=== PATIENT | female | born 1955 | race Caucasian/White ===

== ENCOUNTER → 2023-09-15 08:16 | Outpatient (REF) | payer MEDICARE, OTHER, SELFPAY ==
[2023-09-15 09:16] LABS: % Basophils 0.8 % (0-2); % Eosinophils 2.6 % (0-6); % Immature Granulocytes 0.3 % (0-0.5); % Lymphocytes 34.6 % (20.5-51.1); % Monocytes 10.1 % (1.7-9.3); % Neutrophils 51.6 % (42.2-75.2); Absolute Basophils 0.1 10^3/uL (0-0.2); Absolute Eosinophils 0.2 10^3/uL (0-0.7); Absolute Lymphocytes 2.2 10^3/uL (1.2-3.4); Absolute Monocytes 0.6 10^3/uL (0.1-0.6); Absolute Neutrophils 3.2 10^3/uL (1.4-6.5); Hematocrit 42.7 % (37.0-47.0); Hemoglobin 14.1 g/dL (12.0-16.0); Mean Corpuscular Hgb 30.3 pg (27.0-31.0); Mean Corpuscular Volume 91.6 fL (81.0-99.0); Mean Platelet Volume 10.3 fL (7.4-10.4); Nucleated Red Blood Cells % 0 %; Platelet Count 246 10^3/uL (130-400); Red Blood Cell Count 4.66 10^6/uL (4.20-5.40); Red Cell Dist. Width 12.3 % (11.5-14.5); White Blood Cell Count 6.3 10^3/uL (4.8-10.8)
[2023-09-15 09:51] LABS: ALT (SGPT) 19 U/L (0-35); AST (SGOT) 24 U/L (14-36); Albumin 4.4 g/dl (3.5-5.0); Alkaline Phosphatase 65 U/L (38-126); Blood Urea Nitrogen 16 mg/dl (7-17); Calcium 8.9 mg/dl (8.4-10.2); Carbon Dioxide 25 mmol/L (22-30); Chloride 109 mmol/L (98-107); Glucose 86 mg/dl (70-99); Potassium 4.1 mmol/L (3.5-5.1); Sodium 141 mmol/L (135-145); Total Bilirubin 0.4 mg/dl (0.2-1.3); Total Cholesterol 172 mg/dl (50-199); Total Protein 6.9 g/dl (6.3-8.2); Triglyceride 108 mg/dl (10-149); Very Low Density Lipoprotein 21 mg/dl (0-30); eGFR > 60.00
[2023-09-15 10:00] LABS: HDL Cholesterol 113 mg/dl; LDL Cholesterol, Calculated 38 mg/dl
[2023-09-15 10:01] LABS: Free T4 1.03 ng/dl (0.78-2.19)
== END ==
LOC: REG 08:16
PROVIDERS: ATTENDING PHYSICIAN Internal Medicine Geriatric Medicine
DX: I10 Essential (primary) hypertension (principal); E78.2 Mixed hyperlipidemia; I31.9 Disease of pericardium, unspecified; I34.0 Nonrheumatic mitral (valve) insufficiency; G45.9 Transient cerebral ischemic attack, unspecified; G47.33 Obstructive sleep apnea (adult) (pediatric)
CPT/HCPCS: 36415; 80053; 80061; 84439; 85025

== ENCOUNTER 2023-10-13 21:34 | Emergency (ER) | payer MEDICARE, OTHER, SELFPAY ==
[2023-10-13 21:40] VITALS: BP 146/88
[2023-10-13 21:59] VITALS: BP 153/76
[2023-10-13 22:00] VITALS: BP 126/71
[2023-10-13 22:24] VITALS: BMI 21.4
[2023-10-13 22:31] LABS: % Basophils 0.6 % (0-2); % Immature Granulocytes 0.3 % (0-0.5); % Lymphocytes 44.8 % (20.5-51.1); % Monocytes 10.8 % (1.7-9.3); % Neutrophils 41.5 % (42.2-75.2); Absolute Eosinophils 0.1 10^3/uL (0-0.7); Absolute Lymphocytes 3.1 10^3/uL (1.2-3.4); Absolute Monocytes 0.7 10^3/uL (0.1-0.6); Absolute Neutrophils 2.9 10^3/uL (1.4-6.5); Mean Corpuscular Hgb 31.2 pg (27.0-31.0); Mean Corpuscular Volume 89.1 fL (81.0-99.0); Nucleated Red Blood Cells % 0 %; Platelet Count 238 10^3/uL (130-400); Red Blood Cell Count 4.49 10^6/uL (4.20-5.40); Red Cell Dist. Width 12.4 % (11.5-14.5); White Blood Cell Count 6.9 10^3/uL (4.8-10.8)
--- NOTE | 2023-10-13 22:31 | ED.GENMED ---
History of Present Illness
General
Chief Complaint: Chest Pain
Source: patient and spouse
Time Seen by Provider: 10/13/23 22:00
Travel History
Have you had any contact with someone who has COVID-19?: No
Do you have any symptoms of coronavirus? Fever > 100 degrees, chills, cough, shortness of breath, sore throat, loss of taste or smell, muscle aches, or headache?: Yes
Symptoms:: SOB
History of Present Illness
History of Present Illness:
67-year-old female with past medical history of hypertension, TIA, pericarditis presenting to the emergency department for evaluation of left-sided chest pain that started 2 days ago, worse yesterday and persisted today prompting her to come to the
ER for further evaluation after telling her later this evening. Patient describes the pain to be a constant sharp pain that radiates up into her left shoulder and into the axillary region and around into her back, worse when laying
reclined, worse with palpation, unchanged with deep inspiration. Patient states she did not want to come to the ER as she does not believe it is her heart noting she has had full cardiac workup last year which did not show any cardiac
abnormalities. Patient is otherwise denying any recent illnesses, fevers, chills, rigors, cough, pleurisy, hemoptysis, lower extremity pain or edema, exertional dyspnea, orthopnea, PND, abdominal pain, syncopal episodes or any other concerns
Past History
Past History
ED Past Medical History: Asthma, CVA, HTN, Seizures, Other (constipation) and Other (Dizziness, frequent headaches, pericarditis, urinary tract infections, kidney infections, ambulatory dysfunction, osteoporosis, asthma condition s/p pneumonia)
ED Past Surgical History: Brain (AVM surgery), Gynecological (Hysterectomy), Orthopedic (Patella fracture repair (05/06/14), left rotator cuff repair, bilateral MCL repairs) and Other (Repair of an AVM , left breast cyst removal)
Social History
Tobacco: Former smoker
Alcohol: None
Drug: None
Personal:
Living: with family
Employment: Employed
Family History
Family History: CAD
Review of Systems
Review of Systems
All Other Systems: ROS reviewed and negative except as documented in HPI and ROS
Phy Exam
Physical Exam
Physical Exam:
GENERAL: Alert , in no apparent distress
Head: NCAT
EYE: conjunctiva clear
NECK: Supple
ENT: o/p clr, mmm.
CARDIAC: Regular rate and rhythm
LUNGS: Clear breath sounds bilaterally, no acute respiratory distress, no wheezes/rales/rhonchi
Chest wall: Clearly reproducible tenderness over the left lateral portion of the sternum and just medial to the left breast
NEUROLOGICAL: Alert and oriented
SKIN: Warm and dry, skin intact.
MUSCULOSKELETAL: well perfused. No edema
PSYCH: Normal and appropriate interaction.
Scores
Heart Failure Risk
Heart Failure Risk Score: Not Applicable
Heart Score for Chest Pain Patients
STEMI patient?: No
History: Slightly or Non-Suspicious
ECG: Normal
Age: >/= 65 years
Risk Factors: 1 or 2 Risk Factors
Troponin: </= Normal Limit
Heart Score for Chest Pain Patients: 3
Heart Score Risk: 2.5% MACE over next 6 weeks
Withdrawal Assessment of Alcohol
Withdrawal Assessment Completed?: Not applicable
Course
Orders/Labs/Results
Orders:
Orders
10/13/23 21:38
Electrocardiogram (*1) Urgent
Reason for Study: Chest Pain
Cardiac Monitoring- Treatment ONCE
EKG- Treatment ONCE
IV Insert/Care/Rem.- Treatment PRN
O2 Therapy [RESP] Urgent
Titrate/Wean O2 to maintain O2 sat greater than (%): 90
Special Instructions: Maintain sats >/=90%
Pulse Ox/spot Check [RESP] Urgent
Quantity: 1
Special Instructions: ON ROOM AIR
10/13/23 22:23
Complete Blood Count/With Diff Urgent
Comprehensive Metabolic Panel Urgent
D-Dimer Urgent
Troponin I Urgent
10/13/23 22:31
Ketorolac [Toradol] 30 mg IV NOW STA
Abnormal Lab Results
10/13/23
22:23
MCH 31.2 H pg
(27.0-31.0)
Absolute Monos (auto) 0.7 H 10^3/uL
(0.1-0.6)
Neutrophils % 41.5 L %
(42.2-75.2)
Monocytes % 10.8 H %
(1.7-9.3)
Chloride 109 H mmol/L
(98-107)
10/13/23 22:23
10/13/23 22:23
Vital Signs
Initial and Last Documented VS:
Initial Vital Signs
Temp Pulse Resp BP Pulse Ox
97.5 F 69 22 146/88 99
10/13/23 21:40 10/13/23 21:40 10/13/23 21:40 10/13/23 21:40 10/13/23 21:40
Last Documented Vital Signs
Temp Pulse Resp BP Pulse Ox
97.5 F 69 18 137/87 97
10/13/23 21:40 10/13/23 23:20 10/13/23 23:20 10/13/23 23:20 10/13/23 23:20
MDM/Problems Addressed
Differential Diagnosis Includes:
Pleurisy, costochondritis, PE, atypical ACS presentation, dissection
MDM/Problems Addressed:
67-year-old female presenting emergency department for evaluation of left-sided chest discomfort has been ongoing for the last 48 hours, told about symptoms tonight and he brought her to the ER for further evaluation. Pain is clearly
reproducible on palpation making a muscular etiology more likely. Patient does have some risk factors for heart disease however including high blood pressure and has a brother with a cardiac stent. Will check labs including a troponin and D-dimer.
Reassessment following.
*Pulse Oximetry
Patient hypoxic: no
*EKG
Comparison EKG: no changes
Heart Rate: 71
Rate: normal
Rhythm: sinus and PVC's
Otoe: normal axis
Ischemia: no ischemia
*Supervisor Furnace Room Interpretation
Rate: normal
Rhythm: sinus
*Critical Care Note
Total Time (30-74mins, 75-104mins- exclusive of procedures): Not Applicable
Data Reviewed
Review of Other/Old Records Reveals: Labs, Records and Testing (Normal nuclear stress test done on September 09, 2022. Echocardiogram done on September 07, 2022 shows left ventricle ejection fraction measuring 60 to 65%. No significant valvular
abnormalities.)
Source: patient and records
Comment
Comment:
Following completion of the exam patient did note to me that last week she had a tooth pulled and was given an antibiotic. Endocarditis considered as a diagnosis however given lack of fevers or other infectious symptoms thought to be less likely
Patient Management
Escalation/DeEscalation of care consider admission/obs:
Patient's labs are all unremarkable. She has a negative D-dimer as well as troponin. Symptoms have been ongoing for greater than 48 hours so I have no suspicion for ACS presentation nor dissection or pulmonary embolism. Suspect muscular etiology
is most likely diagnosis. Patient can follow-up with primary care provider. Aware of return precautions
ED Attending Note
-
Portions of this chart may have been created with voice recognition software.� Occasional wrong word or��sound alike� substitutions may have occurred due to the inherent limitations of voice recognition software.
Discharge Plan
Departure
Patient Disposition: Home (Routine Discharge)
Date of Disposition: 10/13/23
Time of Disposition: 23:16
Patient with high blood pressure during this ER visit?: Yes
Discharge Problem:
Chest pain
Instructions: Chest Pain CBC Follow Up
Prescriptions:
No Action
amitriptyline 25 MG tablet
25 mg PO HS
potassium chloride [Klor-Con M20] 20 MEQ tablet,ER particles/crystals
20 meq PO BID Qty: 0
cholecalciferol (vitamin D3) 2,000 UNITS tablet
4,000 units PO DAILY Qty: 0
levothyroxine 50 MCG tablet
50 mcg PO DAILY
amlodipine 5 MG tablet
5 mg PO HS
meloxicam 7.5 MG tablet
7.5 mg PO DAILY
Hold Instructions: Do not take while taking both aspirin and Plavix
lorazepam 1 MG tablet
0.5 mg PO HS
Patient Comments:
10/18/2022: last filled 10/14/22, 30 tabs for 30 days from [facility][id number]
rosuvastatin 5 MG tablet
5 mg PO DAILY
topiramate 200 mg tablet
200 mg PO BID
lacosamide 100 mg tablet
150 mg PO BID
Calcium 500
600 mg PO DAILY
Mag-200
400 mg PO DAILY
Multi For Her
1 tab PO DAILY
zinc 25 mg Tablet
25 mg PO DAILY
vitamin B complex [B Complex] Capsule
1 cap PO DAILY
levalbuterol tartrate [Xopenex HFA] 45 mcg/actuation Hfa Aerosol Inhaler
1 puff INHALATION Q6H PRN (Reason: SOB)
budesonide-formoterol [Symbicort] 80-4.5 mcg/actuation Hfa Aerosol Inhaler
1 puff INHALATION DAILY PRN (Reason: asthma)
mupirocin 2 % Ointment
1 applic TOPICAL PRE OP
alendronate [Fosamax] 70 mg/75 mL Solution
70 mg PO QWEEK
mupirocin 2 % ointment
1 applic topical BID Qty: 1 0RF
lorazepam 0.5 mg Tablet
0.5 mg PO DAILY PRN (Reason: seizure activity)
amoxicillin-pot clavulanate [Augmentin] 875-125 mg Tablet
1 tab PO Q12H
Rx Instructions:
05/23-06/01
Interventions
Interventions:
*Risk Screen - Suicide Last Done: 10/13/23 21:40
*General Assessment Last Done: 10/13/23 21:40
*Neglect/Abuse Screening Last Done: 10/13/23 21:40
ED- Fall Risk Assessment Last Done: 10/13/23 22:33
*ED COVID-19 Vaccine History Last Done: 10/13/23 23:25
*Nursing Disposition Last Done: 10/13/23 23:20
ED- Cardiac Assessment Last Done: 10/13/23 22:33
Discharge Date and Time
Discharge Date/Time: 10/14/23 00:06
Print Language: LUX[place]BOURG[place]
[2023-10-13 22:42] LABS: ALT (SGPT) 21 U/L (0-35); AST (SGOT) 26 U/L (14-36); Albumin 4.2 g/dl (3.5-5.0); Alkaline Phosphatase 73 U/L (38-126); Blood Urea Nitrogen 15 mg/dl (7-17); Calcium 9.1 mg/dl (8.4-10.2); Carbon Dioxide 25 mmol/L (22-30); Chloride 109 mmol/L (98-107); D-Dimer 0.36 ug/mlFEU (0.00-0.50); Estimated Creatinine Clearance 64 ml/min; Glucose 92 mg/dl (70-99); Potassium 3.9 mmol/L (3.5-5.1); Sodium 137 mmol/L (135-145); Total Bilirubin 0.2 mg/dl (0.2-1.3); Total Protein 6.8 g/dl (6.3-8.2); eGFR > 60.00
[2023-10-13] MEDS: TORADOL 30 MG IV (22:42)
[2023-10-13 22:54] LABS: Troponin I < 0.012 ng/ml
[2023-10-13 23:11] VITALS: BP 137/87
[2023-10-13 23:20] VITALS: BP 137/87
== END 2023-10-14 00:06 | disposition home or self-care (01) ==
LOC: EMR 21:34
PROVIDERS: Emergency Medicine; Physician Assistant Medical; EMERGENCY PHYSICIAN Emergency Medicine; FAMILY PHYSICIAN Internal Medicine Geriatric Medicine
DX: R07.9 Chest pain, unspecified (principal); R09.1 Pleurisy; R06.02 Shortness of breath; I10 Essential (primary) hypertension; Z87.891 Personal history of nicotine dependence; Z86.73 Personal history of transient ischemic attack (TIA), and cerebral infarction without residual deficits
CPT/HCPCS: 99284; 96374; 80053; 84484; 85025; 85379; 93005

== ENCOUNTER → 2023-12-12 16:02 | Outpatient (REF) | payer MEDICARE, OTHER, SELFPAY | LOC: HWRAD 16:02 | PROVIDERS: ATTENDING PHYSICIAN Nurse Practitioner Family; FAMILY PHYSICIAN Internal Medicine Geriatric Medicine | DX: R10.31 Right lower quadrant pain (principal) | CPT/HCPCS: 74176 ==

== ENCOUNTER → 2023-12-13 07:40 | Outpatient (REF) | payer MEDICARE, OTHER, SELFPAY ==
[2023-12-13 08:46] LABS: Urine Albumin Negative (Neg - Trace); Urine Bilirubin Negative (Negative); Urine Character Clear (Clear); Urine Color Yellow; Urine Glucose Negative (Negative); Urine Ketone Negative (Negative); Urine Leukocyte 1+ (Negative); Urine Nitrite Negative (Negative); Urine Occult Blood Negative (Negative); Urine Urobilinogen Negative (Neg - 1+)
[2023-12-13 08:54] LABS: % Eosinophils 3.1 % (0-6); % Immature Granulocytes 0.2 % (0-0.5); % Monocytes 11.1 % (1.7-9.3); % Neutrophils 41.6 % (42.2-75.2); Absolute Basophils 0.1 10^3/uL (0-0.2); Absolute Eosinophils 0.2 10^3/uL (0-0.7); Absolute Lymphocytes 2.1 10^3/uL (1.2-3.4); Absolute Monocytes 0.5 10^3/uL (0.1-0.6); Hematocrit 39.6 % (37.0-47.0); Hemoglobin 13.3 g/dL (12.0-16.0); Mean Corp Hgb Conc. 33.6 g/dL (33.0-37.0); Mean Corpuscular Hgb 30.4 pg (27.0-31.0); Mean Corpuscular Volume 90.6 fL (81.0-99.0); Mean Platelet Volume 10.9 fL (7.4-10.4); Nucleated Red Blood Cells % 0 %; Platelet Count 218 10^3/uL (130-400); Red Blood Cell Count 4.37 10^6/uL (4.20-5.40); Red Cell Dist. Width 12.2 % (11.5-14.5); White Blood Cell Count 4.8 10^3/uL (4.8-10.8)
[2023-12-13 09:05] LABS: Urine Hyaline Cast 0-2 /LPF (0-2); Urine Squamous Cell 21-25 /LPF (Few)
[2023-12-13 09:06] LABS: Urine Amorphous Seen
[2023-12-13 09:07] LABS: Urine Bacteria Moderate (Negative); Urine Red Blood Cell 0-2 /HPF (0-2)
[2023-12-13 09:16] LABS: ALT (SGPT) 23 U/L (0-35); AST (SGOT) 29 U/L (14-36); Albumin 4.1 g/dl (3.5-5.0); Alkaline Phosphatase 67 U/L (38-126); Blood Urea Nitrogen 15 mg/dl (7-17); Calcium 9.2 mg/dl (8.4-10.2); Carbon Dioxide 23 mmol/L (22-30); Chloride 111 mmol/L (98-107); Glucose 90 mg/dl (70-99); Sodium 141 mmol/L (135-145); Total Bilirubin 0.5 mg/dl (0.2-1.3); Total Protein 6.4 g/dl (6.3-8.2); eGFR > 60.00
== END ==
LOC: REG 07:40
PROVIDERS: ATTENDING PHYSICIAN Nurse Practitioner Family
DX: R10.31 Right lower quadrant pain (principal)
CPT/HCPCS: 36415; 80053; 81003; 81015; 85025; 87086

== ENCOUNTER → 2024-02-08 10:42 | Outpatient (REF) | payer MEDICARE, OTHER, SELFPAY ==
[2024-02-08 11:56] LABS: Hematocrit 40.8 % (37.0-47.0); Hemoglobin 13.9 g/dL (12.0-16.0); Mean Corp Hgb Conc. 34.1 g/dL (33.0-37.0); Mean Corpuscular Hgb 31.6 pg (27.0-31.0); Mean Corpuscular Volume 92.7 fL (81.0-99.0); Mean Platelet Volume 10.5 fL (7.4-10.4); Platelet Count 241 10^3/uL (130-400); Red Cell Dist. Width 12.4 % (11.5-14.5)
[2024-02-08 12:13] LABS: ALT (SGPT) 24 U/L (0-35); AST (SGOT) 24 U/L (14-36); Albumin 4.5 g/dl (3.5-5.0); Alkaline Phosphatase 73 U/L (38-126); Blood Urea Nitrogen 17 mg/dl (7-17); Calcium 9.8 mg/dl (8.4-10.2); Carbon Dioxide 24 mmol/L (22-30); Chloride 109 mmol/L (98-107); Glucose 82 mg/dl (70-99); Potassium 4.4 mmol/L (3.5-5.1); Sodium 139 mmol/L (135-145); Total Bilirubin 0.4 mg/dl (0.2-1.3); Total Protein 6.9 g/dl (6.3-8.2); eGFR > 60.00
[2024-02-08 12:30] LABS: Vitamin D, 25-OH*** 70.4 ng/mL (30-80)
[2024-02-08 12:40] LABS: TSH Reflex To Free T4 1.31 uIU/ml (0.47-4.68)
[2024-02-08 12:59] LABS: Vitamin B12 864 pg/ml (239-931)
[2024-02-08 14:37] LABS: % Basophils 0.6 % (0-2); % Eosinophils 0.6 % (0-6); % Immature Granulocytes 0.3 % (0-0.5); % Lymphocytes 33.7 % (20.5-51.1); % Monocytes 11.3 % (1.7-9.3); % Neutrophils 53.5 % (42.2-75.2); Absolute Lymphocytes 2.4 10^3/uL (1.2-3.4); Absolute Monocytes 0.8 10^3/uL (0.1-0.6); Absolute Neutrophils 3.7 10^3/uL (1.4-6.5); Nucleated Red Blood Cells % 0 %
== END ==
LOC: REG 10:42
PROVIDERS: ATTENDING PHYSICIAN Nurse Practitioner Family; FAMILY PHYSICIAN Internal Medicine Geriatric Medicine
DX: L29.9 Pruritus, unspecified (principal); I10 Essential (primary) hypertension; E78.2 Mixed hyperlipidemia; E03.9 Hypothyroidism, unspecified; E56.9 Vitamin deficiency, unspecified; Z87.898 Personal history of other specified conditions; D51.9 Vitamin B12 deficiency anemia, unspecified; E55.9 Vitamin D deficiency, unspecified
CPT/HCPCS: 36415; 80053; 82306; 82607; 84443; 85025

== ENCOUNTER 2024-02-20 16:07 | Outpatient (RCR) | payer MEDICARE, OTHER, SELFPAY | END 2024-02-20 23:59 | disposition home or self-care (01) | LOC: RPT 16:07 | PROVIDERS: ATTENDING PHYSICIAN Orthopaedic Surgery; FAMILY PHYSICIAN Internal Medicine Geriatric Medicine | DX: M16.11 Unilateral primary osteoarthritis, right hip (principal); Z73.6 Limitation of activities due to disability | CPT/HCPCS: 97110; 97162; 97530 ==

== ENCOUNTER 2024-02-29 16:13 | Outpatient (RCR) | payer MEDICARE, OTHER, SELFPAY | END 2024-03-01 07:10 | disposition home or self-care (01) | LOC: RPT 16:13 | PROVIDERS: ATTENDING PHYSICIAN Orthopaedic Surgery; FAMILY PHYSICIAN Internal Medicine Geriatric Medicine | DX: M16.11 Unilateral primary osteoarthritis, right hip (principal) | CPT/HCPCS: 97110; 97530 ==

== ENCOUNTER 2024-03-27 07:46 | Inpatient (IN) | payer MEDICARE, OTHER, SELFPAY ==
[2024-03-07 13:05] VITALS: BMI 22.1
[2024-03-07 13:37] LABS: Hematocrit 42.3 % (37.0-47.0); Hemoglobin 14.3 g/dL (12.0-16.0); Mean Corp Hgb Conc. 33.8 g/dL (33.0-37.0); Mean Corpuscular Hgb 30.4 pg (27.0-31.0); Mean Platelet Volume 10.3 fL (7.4-10.4); Platelet Count 260 10^3/uL (130-400); Red Cell Dist. Width 12.5 % (11.5-14.5); White Blood Cell Count 7.6 10^3/uL (4.8-10.8)
[2024-03-07 13:55] LABS: ALT (SGPT) 23 U/L (0-35); AST (SGOT) 26 U/L (14-36); Albumin 4.5 g/dl (3.5-5.0); Alkaline Phosphatase 73 U/L (38-126); Blood Urea Nitrogen 18 mg/dl (7-17); Calcium 9.8 mg/dl (8.4-10.2); Carbon Dioxide 24 mmol/L (22-30); Chloride 106 mmol/L (98-107); Estimated Creatinine Clearance 52 ml/min; Glucose 91 mg/dl (70-99); Potassium 4.2 mmol/L (3.5-5.1); Sodium 142 mmol/L (135-145); Total Bilirubin 0.3 mg/dl (0.2-1.3); Total Protein 6.9 g/dl (6.3-8.2); eGFR > 60.00
[2024-03-08 09:40] LABS: Glycohemoglobin (HgbA1c) 5.5 % (4.0-5.6)
[2024-03-26 10:00] VITALS: BMI 22.1
[2024-03-27] VITALS (16 sets, daily range): BP systolic 109–145; BP diastolic 59–82; PULSE 102; O2SAT 98; BMI 22.1
[2024-03-27] MEDS: TYLENOL 650 MG PO ×3 (08:32→20:39)
[2024-03-27] MEDS: MOBIC 15 MG PO (08:32)
[2024-03-27] MEDS: NORMOSOL-R/PLASMALYTE-A 1000 IV ×2 (08:32→15:07)
[2024-03-27] MEDS: ROXICODONE 5 MG PO (12:36)
--- NOTE | 2024-03-27 12:51 | W.PN.ORTHO ---
Today's Communication / Plan
-
D/c when clinically stable.
Assessment
.
Distal Motor Intact: Yes
Dressing:
Clean, dry and intact.
Assessment:
R hip OA s/p Link HIDALGO w/ Dr Khan 03/27/24
DVT prophylaxis - ASA, b/l venous foot pumps
HTN - + parameters - monitor BP
PVCs, asymptomatic - monitor on tele
Asthma and suspected VICKY, sleep study pending - monitor O2
- Resume inhaler
- Consider supplemental O2 HS
- IS
Seizure disorder, last 2005 - continue anti-seizure meds
Previous reported Staph infection - will Rx Cefadroxil upon d/c
Hyperlipidemia
Idiopathic pericarditis, chronic.
Nephrolithiasis, non-obstructive
Cerebral AVM status post resection 2004
Cerebral hemangioma.
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
Cervical and lumbar radiculopathy
Hypothyroidism.
Anxiety.
Osteoporosis.
Insomnia.
Remote tobacco abuse.
Plan
.
Surgery / Date: Link HIDALGO w/ Dr Khan 03/27/24
DVT Prophylaxis: Aspirin
Activity:
Out of bed.
PT/OT
Discharge Plan: Home w/ Outpatient PT
Subjective
.
.:
Patient resting comfortably in PACU.
R hip pain minimal and well tolerated.
Denies any new significant complaints.
Vital Signs and Labs
.
Vital Signs and Labs:
Lab Results
03/07/24 12:56
03/07/24 12:56
Temp Pulse Resp BP Pulse Ox
98.2 F 73 18 145/82 99
03/27/24 08:14 03/27/24 08:14 03/27/24 08:14 03/27/24 08:14 03/27/24 08:14
Physical Exam
-
HEENT: No pallor, cyanosis, or jaundice. Throat clear.
NECK: Supple. No JVD.
RESPIRATORY: Lungs clear to auscultation.
CVS: S1, S2 normal. RRR.�
ABDOMEN: Soft, non-tender. No distension.
EXTREMITIES: Strength equal, no calf pain with palpation/dorsiflexion. Calves soft.
CLOTH FINISHER: AOx3. No focal deficits. educational diagnostician grossly intact
--- NOTE | 2024-03-27 12:51 | SUR.PHASEI ---
Lunch relief, pt states increasing discomfort, reassured
--- NOTE | 2024-03-27 13:05 | SUR.PHASEI ---
Dozing arouses easily, vss, discomfort more 'burning at present, ice repositioned edgar well
--- NOTE | 2024-03-27 13:17 | SUR.PHASEI ---
assessment unchanged [place] back
[2024-03-27] MEDS: DILAUDID 0.5 MG IV ×2 (13:22→14:32)
--- NOTE | 2024-03-27 15:30 | PTCARENOTE ---
Patient received from PACU in bed; IVF infusing; Right hip primaseal clean/dry/intact; Bilateral pedal pulse +2 to palpation, patient able to lift both legs; Patient denies N/V at this time; Call perez within reach; Bed in lowest position, wheels
locked; Assessment ongoing
[2024-03-27] MEDS: TYLENOL PO (15:35)
[2024-03-27] MEDS: SYNTHROID 50 MCG PO (15:57)
[2024-03-27] MEDS: ROXICODONE 10 MG PO ×2 (16:08→20:44)
[2024-03-27] MEDS: SYMBICORT 80/4.5 MCG INHALER 1 PUFF INH (16:41)
[2024-03-27] MEDS: ASPIRIN 325 MG PO (17:07)
[2024-03-27] MEDS: ANCEF 5 IV (20:37)
[2024-03-27] MEDS: BACTROBAN 2% OINTMENT 1 APPLIC NASAL (20:38)
[2024-03-27] MEDS: COLACE 100 MG PO (20:38)
[2024-03-27] MEDS: DECADRON 4 MG PO (20:38)
[2024-03-27] MEDS: KCL 20 MEQ PO (20:39)
[2024-03-27] MEDS: SENOKOT 17.2 MG PO (20:39)
[2024-03-27] MEDS: VIMPAT 150 MG PO (20:39)
[2024-03-27] MEDS: TOPAMAX 200 MG PO (20:40)
[2024-03-27] MEDS: ATIVAN 0.5 MG PO (21:56)
[2024-03-27] MEDS: ELAVIL 25 MG PO (21:57)
[2024-03-27] MEDS: PEPCID 20 MG PO (21:57)
[2024-03-28] MEDS: TYLENOL PO (00:52)
[2024-03-28] MEDS: ROXICODONE 10 MG PO ×3 (02:17→13:42)
[2024-03-28 03:05] VITALS: BP 111/63
[2024-03-28] MEDS: TYLENOL 650 MG PO ×3 (03:51→11:26)
[2024-03-28] MEDS: ANCEF 5 IV (03:51)
[2024-03-28] MEDS: SYNTHROID 50 MCG PO (06:19)
[2024-03-28] MEDS: COLACE 100 MG PO (07:33)
[2024-03-28] MEDS: ASPIRIN 325 MG PO (07:33)
[2024-03-28] MEDS: SENOKOT 17.2 MG PO (07:33)
[2024-03-28] MEDS: CRESTOR 5 MG PO (07:33)
[2024-03-28] MEDS: BACTROBAN 2% OINTMENT 1 APPLIC NASAL (07:33)
[2024-03-28] MEDS: MOBIC 15 MG PO (07:34)
[2024-03-28] MEDS: KCL 20 MEQ PO (07:34)
[2024-03-28] MEDS: TOPAMAX 200 MG PO (07:34)
[2024-03-28] MEDS: DECADRON 4 MG PO (07:34)
[2024-03-28] MEDS: VITAMIN D3 (cholecalciferol) 100 MCG PO (07:34)
[2024-03-28] MEDS: VIMPAT 150 MG PO (07:34)
[2024-03-28 07:55] VITALS: BP 121/64
[2024-03-28] MEDS: SYMBICORT 80/4.5 MCG INHALER INH (08:09)
[2024-03-28 09:34] VITALS: BP 117/68; PULSE 88; O2SAT 100
--- NOTE | 2024-03-28 10:16 | W.PN.ORTHO ---
Today's Communication / Plan
-
Await PT recs. Pt did well w/ OT.
D/c later today if remaining clinically stable.
Assessment
.
Distal Motor Intact: Yes
Dressing:
Clean, dry and intact.
Assessment:
R hip OA s/p R GWEN w/ Dr Khan 03/27/24
DVT prophylaxis - ASA, b/l venous foot pumps
HTN - + parameters - BPs stable
PVCs, asymptomatic - maintaining NSR on tele
Asthma and suspected VICKY, sleep study pending - O2 stable on RA
- Resumed inhaler
- Consider supplemental O2 HS
- IS
Seizure disorder, last 2005 - continue anti-seizure meds
Previous reported Staph infection - will Rx Cefadroxil upon d/c
Hyperlipidemia
Idiopathic pericarditis, chronic.
Nephrolithiasis, non-obstructive
Cerebral AVM status post resection 2004
Cerebral hemangioma.
Left parietal CVA on brain MRI 09/2022 w/ h/o TIA
Cervical and lumbar radiculopathy
Hypothyroidism.
Anxiety.
Osteoporosis.
Insomnia.
Remote tobacco abuse.
Plan
.
Surgery / Date: R GWEN w/ Dr Khan 03/27/24
DVT Prophylaxis: Aspirin
Activity:
Out of bed.
PT/OT
Discharge Plan: Home w/ Outpatient PT
Subjective
.
.:
Patient resting comfortably in her chair.
R hip pain well tolerated w/ current pain meds
Denies any new significant complaints.
Eager for potential d/c today.
Vital Signs and Labs
.
Vital Signs and Labs:
Lab Results
03/07/24 12:56
03/07/24 12:56
Temp Pulse Resp BP Pulse Ox
97.8 F 76 18 121/64 99
03/28/24 07:55 03/28/24 07:55 03/28/24 07:55 03/28/24 07:55 03/28/24 07:55
Non-invasive Hgb result: 12.4
Physical Exam
-
HEENT: No pallor, cyanosis, or jaundice. Throat clear.
NECK: Supple. No JVD.
RESPIRATORY: Lungs clear to auscultation.
CVS: S1, S2 normal. RRR.�
ABDOMEN: Soft, non-tender. No distension.
EXTREMITIES: Strength equal, no calf pain with palpation/dorsiflexion. Calves soft.
IMPROVEMENT ADVISOR: AOx3. No focal deficits. head of human resources grossly intact
--- NOTE | 2024-03-28 10:29 | W.DS.TRANS ---
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
-
Discharge Instructions:
Sleep Apnea Risk Low
Discharge Diagnosis/Procedures R hip OA s/p R GWEN w/ Dr Khan 03/27/24
Diet Other diet
Additional Diets Diabetic carb controlled x1 week for wound
healing/infection prevention
Activity As tolerated,With Walker
Driving Restrictions Not until seen by your Dr
Bathing Restrictions OK to Shower
Other Services PT
Wound Care Dressing to be removed 1 week post-surgery.
Instructions:
Stand-Alone Forms: Total Hip/Knee Replacement D/C
Changes to Home Medications: Yes
Discharge Medications:
DC Medications w/original date entered in [employer]
amitriptyline 25 mg tablet 25 mg PO HS Mental Health/Anxiety 06/21/13
cholecalciferol (vitamin D3) 50 mcg (2,000 unit) tablet 4,000 units PO DAILY Supplement ##0 05/05/14
potassium chloride 20 mEq tablet,extended release(part/cryst) (Klor-Con M) 20 meq PO BID Electrolyte Repletion ##0 05/05/14
levothyroxine 50 mcg tablet 50 mcg PO DAILY Thyroid 09/16/17
lorazepam 1 mg tablet 0.5 mg PO HS Sleep 09/08/21
rosuvastatin 5 mg tablet 5 mg PO DAILY High cholesterol 09/08/21
lacosamide 100 mg tablet 150 mg PO BID Neurological Condition 10/18/22
topiramate 200 mg tablet 200 mg PO BID Mental Health/Anxiety 10/18/22
Calcium 500 600 mg PO DAILY Supplement 10/19/22
Mag-200 400 mg PO DAILY Supplement 10/19/22
Multi For Her 1 tab PO DAILY Supplement 10/19/22
budesonide-formoterol HFA 80 mcg-4.5 mcg/actuation aerosol inhaler (Symbicort) 1 puff inhalation DAILY PRN asthma 05/05/23
levalbuterol tartrate 45 mcg/actuation aerosol inhaler (Xopenex HFA) 1 puff inhalation Q6H PRN SOB 05/05/23
vitamin B complex 1 cap PO DAILY 05/05/23
zinc 25 mg tablet 25 mg PO DAILY 05/05/23
lorazepam 0.5 mg tablet 0.5 mg PO DAILY PRN seizure activity 05/30/23
mupirocin 2 % topical ointment 1 applic topical BID 03/21/24
Saccharomyces boulardii 250 mg capsule (Florastor) 250 mg PO BID #14 caps 03/28/24
acetaminophen 500 mg tablet 1,000 mg (2 x 500 mg) PO Q6H #60 tabs 03/28/24
amlodipine 2.5 mg tablet 2.5 mg PO HS #0 tabs 03/28/24
amlodipine 5 mg tablet 5 mg PO DAILY Blood pressure #0 tabs 03/28/24
aspirin 325 mg tablet 325 mg PO DAILY #30 tabs 03/28/24
cefadroxil 500 mg capsule 500 mg PO BID #14 caps 03/28/24
dexamethasone 4 mg tablet 4 mg PO Q12H Anti-inflammatory #7 tabs 03/28/24
docusate sodium 100 mg capsule 100 mg PO BID #30 caps 03/28/24
meloxicam 7.5 mg tablet 7.5 mg PO DAILY Anti-inflammatory #0 tabs 03/28/24
ondansetron HCl 4 mg tablet 4 mg PO Q6H PRN nausea and vomiting #30 tabs 03/28/24
oxycodone 5 mg tablet 5 - 10 mg (1 - 2 x 5 mg) PO Q6H PRN moderate-severe pain #30 tabs 03/28/24
sennosides 8.6 mg tablet (Senna Laxative) 17.2 mg (2 x 8.6 mg) PO BID #30 tabs 03/28/24
Home Medication Changes
Saccharomyces boulardii 250 mg capsule (Florastor) 250 mg PO BID #14 caps 03/28/24
acetaminophen 500 mg tablet 1,000 mg (2 x 500 mg) PO Q6H #60 tabs 03/28/24
aspirin 325 mg tablet 325 mg PO DAILY #30 tabs 03/28/24
cefadroxil 500 mg capsule 500 mg PO BID #14 caps 03/28/24
dexamethasone 4 mg tablet 4 mg PO Q12H Anti-inflammatory #7 tabs 03/28/24
docusate sodium 100 mg capsule 100 mg PO BID #30 caps 03/28/24
ondansetron HCl 4 mg tablet 4 mg PO Q6H PRN nausea and vomiting #30 tabs 03/28/24
oxycodone 5 mg tablet 5 - 10 mg (1 - 2 x 5 mg) PO Q6H PRN moderate-severe pain #30 tabs 03/28/24
sennosides 8.6 mg tablet (Senna Laxative) 17.2 mg (2 x 8.6 mg) PO BID #30 tabs 03/28/24
Pending Results: No
[2024-03-28 11:31] VITALS: BP 115/73
== END 2024-03-28 14:24 | disposition home or self-care (01) | DRG 470 ==
LOC: 2 SOUTH 07:46
PROVIDERS: ADMITTING PHYSICIAN Orthopaedic Surgery; FAMILY PHYSICIAN Internal Medicine Geriatric Medicine; REFERRING PHYSICIAN Internal Medicine Cardiovascular Disease
PROC: 0SR904Z Replacement of Right Hip Joint with Ceramic on Polyethylene Synthetic Substitute, Open Approach (ICD-10-PCS; 2024-03-27)
DX: M16.11 Unilateral primary osteoarthritis, right hip (principal); I10 Essential (primary) hypertension; E03.9 Hypothyroidism, unspecified; M81.0 Age-related osteoporosis without current pathological fracture; Z86.73 Personal history of transient ischemic attack (TIA), and cerebral infarction without residual deficits
CPT/HCPCS: 36415; 73502; 80053; 83036; 85027; 87070; 94640; 97110; 97116; 97163; 97166; 97530; 97535; C1776

== ENCOUNTER 2024-04-25 10:53 | Outpatient (RCR) | payer MEDICARE, OTHER, SELFPAY | END 2024-04-25 23:59 | disposition home or self-care (01) | LOC: RPT 10:53 | PROVIDERS: ATTENDING PHYSICIAN Orthopaedic Surgery; FAMILY PHYSICIAN Student in an Organized Health Care Education/Training Program | DX: Z47.1 Aftercare following joint replacement surgery (principal); Z96.641 Presence of right artificial hip joint; Z73.6 Limitation of activities due to disability | CPT/HCPCS: 97010; 97110; 97112; 97140; 97162; 97530 ==

== ENCOUNTER 2024-05-22 11:00 | Outpatient (RCR) | payer MEDICARE, OTHER, SELFPAY | END 2024-05-22 23:59 | disposition home or self-care (01) | LOC: RPT 11:00 | PROVIDERS: ATTENDING PHYSICIAN Orthopaedic Surgery; FAMILY PHYSICIAN Student in an Organized Health Care Education/Training Program | DX: Z47.1 Aftercare following joint replacement surgery (principal); Z73.6 Limitation of activities due to disability; Z96.641 Presence of right artificial hip joint | CPT/HCPCS: 97010; 97110; 97112; 97530 ==

== ENCOUNTER 2024-06-25 11:00 | Outpatient (RCR) | payer MEDICARE, OTHER, SELFPAY | END 2024-06-25 23:59 | disposition home or self-care (01) | LOC: RPT 11:00 | PROVIDERS: ATTENDING PHYSICIAN Orthopaedic Surgery; FAMILY PHYSICIAN Student in an Organized Health Care Education/Training Program | DX: Z47.1 Aftercare following joint replacement surgery (principal); Z96.641 Presence of right artificial hip joint; Z73.6 Limitation of activities due to disability | CPT/HCPCS: 97110; 97112; 97140 ==

== ENCOUNTER 2024-07-03 10:02 | Outpatient (RCR) | payer MEDICARE, OTHER, SELFPAY | END 2024-07-03 23:59 | disposition home or self-care (01) | LOC: RPT 10:02 | PROVIDERS: ATTENDING PHYSICIAN Orthopaedic Surgery; FAMILY PHYSICIAN Student in an Organized Health Care Education/Training Program | DX: Z47.1 Aftercare following joint replacement surgery (principal); Z73.6 Limitation of activities due to disability; R26.2 Difficulty in walking, not elsewhere classified; M62.81 Muscle weakness (generalized); R26.89 Other abnormalities of gait and mobility; Z96.641 Presence of right artificial hip joint | CPT/HCPCS: 97110 ==

== ENCOUNTER → 2024-07-06 06:17 | Outpatient (REF) | payer MEDICARE, OTHER, SELFPAY | LOC: MRI 06:17 | PROVIDERS: ATTENDING PHYSICIAN Physician Assistant Surgical; FAMILY PHYSICIAN Internal Medicine Geriatric Medicine | DX: Z96.641 Presence of right artificial hip joint (principal) | CPT/HCPCS: 73721 ==

== ENCOUNTER → 2024-08-20 10:23 | Outpatient (REF) | payer MEDICARE, OTHER, SELFPAY | LOC: DHSLP 10:23 | PROVIDERS: ATTENDING PHYSICIAN Nurse Practitioner Family | DX: G47.33 Obstructive sleep apnea (adult) (pediatric) (principal) | CPT/HCPCS: 95810 ==

== ENCOUNTER 2024-09-18 15:02 | Outpatient (RCR) | payer MEDICARE, OTHER, SELFPAY | END 2024-09-18 23:59 | disposition home or self-care (01) | LOC: RPT 15:02 | PROVIDERS: ATTENDING PHYSICIAN Nurse Practitioner Family; FAMILY PHYSICIAN Internal Medicine Geriatric Medicine | DX: H81.10 Benign paroxysmal vertigo, unspecified ear (principal); M54.2 Cervicalgia; Z73.6 Limitation of activities due to disability | CPT/HCPCS: 97010; 97110; 97140; 97163 ==

== ENCOUNTER → 2024-10-10 09:49 | Outpatient (REF) | payer MEDICARE, OTHER, SELFPAY | LOC: RAD 09:49 | PROVIDERS: ATTENDING PHYSICIAN Internal Medicine Rheumatology; FAMILY PHYSICIAN Internal Medicine Geriatric Medicine | DX: M81.0 Age-related osteoporosis without current pathological fracture (principal) | CPT/HCPCS: 77080 ==

== ENCOUNTER 2024-10-21 09:05 | Outpatient (RCR) | payer MEDICARE, OTHER, SELFPAY | END 2024-10-21 23:59 | disposition home or self-care (01) | LOC: RPT 09:05 | PROVIDERS: ATTENDING PHYSICIAN Nurse Practitioner Family; FAMILY PHYSICIAN Internal Medicine Geriatric Medicine | DX: H81.10 Benign paroxysmal vertigo, unspecified ear (principal); M54.2 Cervicalgia; Z73.6 Limitation of activities due to disability | CPT/HCPCS: 97010; 97110; 97140 ==

== ENCOUNTER → 2024-11-04 12:41 | Outpatient (REF) | payer MEDICARE, OTHER, SELFPAY ==
[2024-11-04 14:28] LABS: NT-proBNP 23.3 pg/ml
[2024-11-04 14:41] LABS: Erythrocyte Sed Rate 13 mm/hour (0-20)
[2024-11-04 15:21] LABS: ALT (SGPT) 18 U/L (0-35); AST (SGOT) 22 U/L (14-36); Albumin 4.9 g/dl (3.5-5.0); Alkaline Phosphatase 77 U/L (38-126); Blood Urea Nitrogen 16 mg/dl (7-17); Calcium 9.3 mg/dl (8.4-10.2); Carbon Dioxide 25 mmol/L (22-30); Chloride 113 mmol/L (98-107); Glucose 85 mg/dl (70-99); Potassium 4.1 mmol/L (3.5-5.1); Sodium 144 mmol/L (135-145); Total Bilirubin 0.5 mg/dl (0.2-1.3); Total Protein 7.1 g/dl (6.3-8.2); eGFR > 60.00
[2024-11-04 15:23] LABS: % Eosinophils 1.7 % (0-6); % Immature Granulocytes 0.2 % (0-0.5); % Lymphocytes 33.4 % (20.5-51.1); % Monocytes 9.4 % (1.7-9.3); % Neutrophils 54.3 % (42.2-75.2); Absolute Basophils 0.1 10^3/uL (0-0.2); Absolute Eosinophils 0.1 10^3/uL (0-0.7); Absolute Lymphocytes 1.9 10^3/uL (1.2-3.4); Absolute Monocytes 0.5 10^3/uL (0.1-0.6); Absolute Neutrophils 3.1 10^3/uL (1.4-6.5); Hematocrit 43.5 % (37.0-47.0); Hemoglobin 14.4 g/dL (12.0-16.0); Mean Corp Hgb Conc. 33.1 g/dL (33.0-37.0); Mean Corpuscular Hgb 31.3 pg (27.0-31.0); Mean Corpuscular Volume 94.6 fL (81.0-99.0); Mean Platelet Volume 11.8 fL (7.4-10.4); Nucleated Red Blood Cells % 0 %; Platelet Count 203 10^3/uL (130-400); Red Cell Dist. Width 12.3 % (11.5-14.5); White Blood Cell Count 5.8 10^3/uL (4.8-10.8)
== END ==
LOC: RCS 12:41
PROVIDERS: ATTENDING PHYSICIAN Nurse Practitioner Family
DX: I10 Essential (primary) hypertension (principal); R07.89 Other chest pain; E03.9 Hypothyroidism, unspecified
CPT/HCPCS: 36415; 71046; 80053; 83880; 85025; 85652; 93005

== ENCOUNTER → 2024-11-15 14:38 | Outpatient (REF) | payer MEDICARE, OTHER, SELFPAY | LOC: REG 14:38 | PROVIDERS: ATTENDING PHYSICIAN Nurse Practitioner Family | DX: I10 Essential (primary) hypertension (principal); R07.89 Other chest pain; E03.9 Hypothyroidism, unspecified | CPT/HCPCS: 36415; 84443 ==

== ENCOUNTER 2024-11-20 17:16 | Outpatient (RCR) | payer MEDICARE, OTHER, SELFPAY | END 2024-11-20 23:59 | disposition home or self-care (01) | LOC: RPT 17:16 | PROVIDERS: ATTENDING PHYSICIAN Nurse Practitioner Family; FAMILY PHYSICIAN Internal Medicine Geriatric Medicine | DX: H81.10 Benign paroxysmal vertigo, unspecified ear (principal); M54.2 Cervicalgia; Z73.6 Limitation of activities due to disability | CPT/HCPCS: 97010; 97110; 97140 ==

== ENCOUNTER → 2024-11-26 07:16 | Outpatient (REF) | payer MEDICARE, OTHER, SELFPAY | LOC: MRI 3T 07:16 | PROVIDERS: ATTENDING PHYSICIAN Physician Assistant; FAMILY PHYSICIAN Internal Medicine Geriatric Medicine | DX: M25.561 Pain in right knee (principal) | CPT/HCPCS: 73721 ==

== ENCOUNTER 2024-12-18 09:25 | Outpatient (RCR) | payer MEDICARE, OTHER, SELFPAY | END 2024-12-18 23:59 | disposition home or self-care (01) | LOC: RPT 09:25 | PROVIDERS: ATTENDING PHYSICIAN Nurse Practitioner Family; FAMILY PHYSICIAN Internal Medicine Geriatric Medicine | DX: H81.10 Benign paroxysmal vertigo, unspecified ear (principal); M54.2 Cervicalgia; Z73.6 Limitation of activities due to disability | CPT/HCPCS: 97010; 97110; 97140; 97164 ==

== ENCOUNTER → 2025-01-01 15:40 | Outpatient (REF) | payer MEDICARE, OTHER, SELFPAY ==
[2025-01-01 18:08] LABS: TSH 0.66 uIU/ml (0.47-4.68)
== END ==
LOC: REG 15:40
PROVIDERS: ATTENDING PHYSICIAN Nurse Practitioner Family; FAMILY PHYSICIAN Internal Medicine Geriatric Medicine
DX: E03.9 Hypothyroidism, unspecified (principal)
CPT/HCPCS: 36415; 84439; 84443

== ENCOUNTER 2025-01-22 09:09 | Outpatient (RCR) | payer MEDICARE, OTHER, SELFPAY | END 2025-01-22 23:59 | disposition home or self-care (01) | LOC: RPT 09:09 | PROVIDERS: ATTENDING PHYSICIAN Nurse Practitioner Family; FAMILY PHYSICIAN Internal Medicine Geriatric Medicine | DX: H81.10 Benign paroxysmal vertigo, unspecified ear (principal); M54.2 Cervicalgia; Z73.6 Limitation of activities due to disability; R51.9 Headache, unspecified | CPT/HCPCS: 97010; 97110; 97530 ==

== ENCOUNTER 2025-02-20 10:03 | Outpatient (RCR) | payer MEDICARE, OTHER, SELFPAY | END 2025-02-20 23:59 | disposition home or self-care (01) | LOC: RPT 10:03 | PROVIDERS: ATTENDING PHYSICIAN Nurse Practitioner Family; FAMILY PHYSICIAN Internal Medicine Geriatric Medicine | DX: H81.10 Benign paroxysmal vertigo, unspecified ear (principal); M54.2 Cervicalgia; Z73.6 Limitation of activities due to disability; M25.561 Pain in right knee; M25.562 Pain in left knee; Z96.641 Presence of right artificial hip joint | CPT/HCPCS: 97110; 97530 ==

== ENCOUNTER 2025-02-26 06:26 | Day surgery (SDC) | payer MEDICARE, OTHER, SELFPAY | END 2025-02-26 14:19 | disposition home or self-care (01) | LOC: GI 06:26 | PROVIDERS: ATTENDING PHYSICIAN Internal Medicine Gastroenterology | DX: Z12.11 Encounter for screening for malignant neoplasm of colon (principal); K64.8 Other hemorrhoids; K57.30 Diverticulosis of large intestine without perforation or abscess without bleeding; R13.10 Dysphagia, unspecified; R12 Heartburn; K44.9 Diaphragmatic hernia without obstruction or gangrene; K31.89 Other diseases of stomach and duodenum; D12.2 Benign neoplasm of ascending colon; D12.3 Benign neoplasm of transverse colon; Z86.0100 Personal history of colon polyps, unspecified | CPT/HCPCS: 45385; 45380; 43239; 88305; 88342 ==

== ENCOUNTER 2025-03-04 13:42 | Emergency (ER) | payer MEDICARE, OTHER, SELFPAY ==
[2025-03-04 13:45] VITALS: BP 145/85
--- NOTE | 2025-03-04 16:19 | ED.GENMED ---
History of Present Illness
General
Chief Complaint: Bowel Problem
Source: patient
Exam Limitations: none
Time Seen by Provider: 03/04/25 15:30
History of Present Illness
History of Present Illness:
69yoF with a history of hypertension, hyperlipidemia, TIA, and chronic constipation presenting with her for evaluation of constipation. Patient had a colonoscopy on 02/26/[address] Gilbert. Due to her chronic constipation, patient required a
5-day prep for the colonoscopy. Colonoscopy showed polyps, diverticulosis, and internal hemorrhoids but otherwise normal. It was recommended that she start a high-fiber diet and was also started on Amitiza twice daily. Patient has had
constipation since the colonoscopy and was only able to pass a small to much bowel movement this morning. Patient has also been using Miralax without relief. She feels like she is unable to eat due to feeling sick to her stomach. She called her
GI office today regarding her symptoms and was told to go to the ED for evaluation. She denies any vomiting, difficulty urinating, or fevers.
Past History
Past History
ED Past Medical History: Asthma, CVA, HTN, Seizures, Other (constipation) and Other (Dizziness, frequent headaches, pericarditis, urinary tract infections, kidney infections, ambulatory dysfunction, osteoporosis, asthma condition s/p pneumonia)
ED Past Surgical History: Brain (AVM surgery), Gynecological (Hysterectomy), Orthopedic (Patella fracture repair (05/06/14), left rotator cuff repair, bilateral MCL repairs) and Other (Repair of an AVM , left breast cyst removal)
Social History
Tobacco: Former smoker
Alcohol: None
Drug: None
Personal:
Living: with family
Employment: Employed
Family History
Family History: CAD
Phy Exam
General Physical Exam
General Presentation: well appearing and no apparent distress
General Skin: warm and dry
General Habitus: normal
General Mental: alert
ENT Exam
ENT Exam: normocephalic
Cardiovascular Exam
Cardiovascular Exam: regular rate/rhythm
Pulmonary Exam
Pulmonary Exam: lungs clear, no respiratory distress, no rales, no crackles, no rhonchi and no wheezing
Gastrointestinal Exam
Gastrointestinal Exam: normal bowel sounds, soft, non distended and other (+Tenderness to epigastric and suprapubic regions. Abdomen soft, non-distended. No rebound or guarding.)
Neurological Exam
Neurological Exam: alert
Get Coma Scale
Eye Opening: Spontaneous
Verbal Response: Oriented
Motor Response: Obeys Commands
GCS Total Score: 15
Skin Exam
Skin Exam: normal color and warm/dry
Psychiatric Exam
Psychiatric Exam: normal mood/affect
Course
Orders/Labs/Results
Orders:
Orders
03/04/25 13:51
Obstruct Series W/PA Chest [CR Obstruct Series W/pa Chest] Urgent
Comment:
Reason For Exam: abd bloating and constipation
03/04/25 16:18
CT Abd/pelvis W Iv Cont Urgent
Comment:
Reason For Exam: constipation, abd pain, colonoscopy 6 days ago
0.9% Sodium Chloride 1000 ml [Nss] 1,000 ml IV BOLUS
03/04/25 16:31
Complete Blood Count/With Diff Urgent
Comprehensive Metabolic Panel Urgent
Lipase Urgent
03/04/25 17:58
Enema- Treatment ONCE
Type: Milk of Molasses
Abnormal Lab Results
03/04/25
16:31
Absolute Monos (auto) 1.0 H 10^3/uL
(0.1-0.6)
Monocytes % 14.4 H %
(1.7-9.3)
Chloride 109 H mmol/L
(98-107)
Glucose 103 H mg/dl
(70-99)
03/04/25 16:31
03/04/25 16:31
Vital Signs
Initial and Last Documented VS:
Initial Vital Signs
Temp Pulse Resp BP Pulse Ox
98.1 F 86 18 145/85 100
03/04/25 13:45 03/04/25 13:45 03/04/25 13:45 03/04/25 13:45 03/04/25 13:45
Last Documented Vital Signs
Temp Pulse Resp BP Pulse Ox
98.4 F 86 16 141/79 99
03/04/25 16:35 03/04/25 17:58 03/04/25 17:58 03/04/25 17:58 03/04/25 17:58
MDM/Problems Addressed
Differential Diagnosis Includes:
69yoF here with constipation. Hx of chronic constipation. Had a colonoscopy 6 days ago and only passed a small BM today since then. C/o bloating and nausea. Sent in by GI office. No vomiting. VSS. She is well appearing in no distress. Abdomen soft,
non-distended on exam. Differential diagnosis includes but is not limited to: constipation, fecal impaction, bowel perforation, SBO
Initial ED plan: Obstruction series x-rays obtained from triage which are normal. Will check abdominal labs and CT abdomen. IV fluid bolus.
*Pulse Oximetry
SaO2: 100
Oxygen Mode of Delivery: Room air
Patient hypoxic: no (100%)
*Critical Care Note
Total Time (30-74mins, 75-104mins- exclusive of procedures): Not Applicable
Update Note
Update Note:
Labs unremarkable and CT abdomen shows moderate volume colonic stool without evidence of obstruction. Patient given milk of molasses enema and was able to have a large bowel movement. She is stable for discharge and was advised to f/u with her
gastroenterology team. ED return precautions reviewed and she was discharged in stable condition.
ED Attending Note
-
Portions of this chart may have been created with voice recognition software.� Occasional wrong word or��sound alike� substitutions may have occurred due to the inherent limitations of voice recognition software.
Discharge Plan
Departure
Patient Disposition: Home (Routine Discharge)
Date of Disposition: 03/04/25
Time of Disposition: 18:58
Patient with high blood pressure during this ER visit?: Yes
Discharge Problem:
Constipation
Instructions: Constipation, Adult (DC)
Prescriptions:
No Action
amitriptyline 25 MG tablet
25 mg PO HS
potassium chloride [Klor-Con M20] 20 MEQ tablet,ER particles/crystals
20 meq PO BID Qty: 0
cholecalciferol (vitamin D3) 2,000 UNITS tablet
4,000 units PO DAILY Qty: 0
levothyroxine 50 MCG tablet
50 mcg PO DAILY
lorazepam 1 MG tablet
0.5 mg PO HS
Patient Comments:
10/18/2022: last filled 10/14/22, 30 tabs for 30 days from [facility]
rosuvastatin 5 MG tablet
5 mg PO DAILY
topiramate 200 mg tablet
200 mg PO BID
lacosamide 100 mg tablet
150 mg PO BID
Calcium 500
600 mg PO DAILY
Mag-200
400 mg PO DAILY
Multi For Her
1 tab PO DAILY
zinc 25 mg Tablet
25 mg PO DAILY
vitamin B complex Capsule
1 cap PO DAILY
levalbuterol tartrate [Xopenex HFA] 45 mcg/actuation Hfa Aerosol Inhaler
1 puff INHALATION Q6H PRN (Reason: SOB)
budesonide-formoterol [Symbicort] 80-4.5 mcg/actuation Hfa Aerosol Inhaler
1 puff INHALATION DAILY PRN (Reason: asthma)
lorazepam 0.5 mg Tablet
0.5 mg PO DAILY PRN (Reason: seizure activity)
mupirocin 2 % Ointment
1 applic TOPICAL BID
Patient Comments:
strated treatment monday03/24/24 and completed BID
aspirin 325 mg Tablet
325 mg PO DAILY Qty: 30 0RF
Rx Instructions:
Take daily x4 weeks for blood clot prevention.
docusate sodium 100 mg Capsule
100 mg PO BID Qty: 30 0RF
dexamethasone 4 mg Tablet
4 mg PO Q12H Qty: 7 0RF
Rx Instructions:
Restart night of discharge and continue every 12 hours until finished.
Take with food.
oxycodone 5 mg Tablet
5 - 10 mg PO Q6H PRN (Reason: moderate-severe pain) Qty: 30 0RF
Rx Instructions:
1 tab for moderate pain, 2 if severe.
Dx total joint.
sennosides [Senna Laxative] 8.6 mg Tablet
17.2 mg PO BID Qty: 30 0RF
ondansetron HCl 4 mg tablet
4 mg PO Q6H PRN (Reason: nausea and vomiting) Qty: 30 0RF
Rx Instructions:
Prescribed by surgeon's office pre-op.
cefadroxil 500 mg capsule
500 mg PO BID Qty: 14 0RF
Saccharomyces boulardii [Florastor] 250 mg capsule
250 mg PO BID Qty: 14 0RF
Rx Instructions:
Over the counter. Take while on antibiotic.
If unavailable, choose a different probiotic.
amlodipine 2.5 mg Tablet
2.5 mg PO HS Qty: 0 0RF
Rx Instructions:
HOLD IF systolic blood pressure <130 while on Oxycodone.
amlodipine 5 MG tablet
5 mg PO DAILY Qty: 0 0RF
Rx Instructions:
HOLD IF systolic blood pressure <130 while on Oxycodone.
acetaminophen 500 mg Tablet
1,000 mg PO Q6H Qty: 60 0RF
Rx Instructions:
DO NOT exceed >4000 mg daily.
meloxicam 7.5 MG tablet
7.5 mg PO DAILY Qty: 0 0RF
Rx Instructions:
Home medication. Take with food.
DO NOT take within 2 hours of Aspirin.
polyethylene glycol 3350 [Miralax] 17 gram powder in packet
17 g PO DAILY PRN (Reason: Constipation) Qty: 14 0RF
Referrals:
Sean Nguyen MD [Family Provider, Internal Medicine]
Activity Restrictions/Additional Instructions:
Continue Amitiza. Take MiraLAX 1-2 times daily as needed for constipation.
Please call your rail engineer tomorrow for further instructions. Return to the ER with any new or worsening symptoms.
Interventions
Interventions:
*Risk Screen - Suicide Last Done: 03/04/25 13:45
*General Assessment Last Done: 03/04/25 13:45
*Neglect/Abuse Screening Last Done: 03/04/25 19:22
*ED- Fall Risk Assessment Last Done: 03/04/25 19:22
*ED COVID-19 Vaccine History Last Done: 03/04/25 19:22
*Nursing Disposition Last Done: 03/04/25 19:22
HR-Pnlhcg-Gvqtvybopj Assessment Last Done: 03/04/25 17:33
Discharge Date and Time
Discharge Date/Time: 03/04/25 19:23
Print Language: MOLDOVAN
[2025-03-04] MEDS: NSS 1000 IV (16:32)
[2025-03-04 16:35] VITALS: BP 140/85
[2025-03-04 16:36] VITALS: BMI 25.5
[2025-03-04 16:51] LABS: Hematocrit 41.2 % (37.0-47.0); Hemoglobin 13.9 g/dL (12.0-16.0); Mean Corp Hgb Conc. 33.7 g/dL (33.0-37.0); Mean Corpuscular Volume 90.9 fL (81.0-99.0); Nucleated Red Blood Cells % 0 %; Platelet Count 239 10^3/uL (130-400); Red Cell Dist. Width 12.0 % (11.5-14.5)
[2025-03-04 17:01] LABS: ALT (SGPT) 15 U/L (0-35); AST (SGOT) 17 U/L (14-36); Albumin 4.4 g/dl (3.5-5.0); Alkaline Phosphatase 91 U/L (38-126); Blood Urea Nitrogen 13 mg/dl (7-17); Calcium 9.5 mg/dl (8.4-10.2); Carbon Dioxide 25 mmol/L (22-30); Chloride 109 mmol/L (98-107); Estimated Creatinine Clearance 60 ml/min; Glucose 103 mg/dl (70-99); Lipase 181 U/L (23-300); Potassium 4.0 mmol/L (3.5-5.1); Sodium 140 mmol/L (135-145); Total Protein 7.0 g/dl (6.3-8.2); eGFR > 60.00
[2025-03-04 17:58] VITALS: BP 141/79
== END 2025-03-04 19:23 | disposition home or self-care (01) ==
LOC: EMR 13:42
PROVIDERS: Physician Assistant; EMERGENCY PHYSICIAN Student in an Organized Health Care Education/Training Program; FAMILY PHYSICIAN Internal Medicine Geriatric Medicine
DX: K59.09 Other constipation (principal); I10 Essential (primary) hypertension; E78.5 Hyperlipidemia, unspecified; J45.909 Unspecified asthma, uncomplicated; Z87.891 Personal history of nicotine dependence; Z86.73 Personal history of transient ischemic attack (TIA), and cerebral infarction without residual deficits
CPT/HCPCS: 99284; 96360; 74022; 74177; 80053; 83690; 85025; Q9967

== ENCOUNTER 2025-03-18 10:09 | Outpatient (RCR) | payer MEDICARE, OTHER, SELFPAY | END 2025-03-18 23:59 | disposition home or self-care (01) | LOC: RPT 10:09 | PROVIDERS: ATTENDING PHYSICIAN Nurse Practitioner Family; FAMILY PHYSICIAN Internal Medicine Geriatric Medicine | DX: H81.10 Benign paroxysmal vertigo, unspecified ear (principal); M54.2 Cervicalgia; Z73.6 Limitation of activities due to disability; M25.561 Pain in right knee; M25.562 Pain in left knee; Z96.641 Presence of right artificial hip joint | CPT/HCPCS: 97110; 97530 ==

== ENCOUNTER 2025-04-16 07:48 | Outpatient (RCR) | payer MEDICARE, OTHER, SELFPAY | END 2025-04-22 23:59 | disposition home or self-care (01) | LOC: RPT 07:48 | PROVIDERS: ATTENDING PHYSICIAN Nurse Practitioner Family; FAMILY PHYSICIAN Internal Medicine Geriatric Medicine | DX: H81.10 Benign paroxysmal vertigo, unspecified ear (principal); M54.2 Cervicalgia; Z73.6 Limitation of activities due to disability; M25.561 Pain in right knee; M25.562 Pain in left knee; Z96.641 Presence of right artificial hip joint | CPT/HCPCS: 97110; 97530 ==

== ENCOUNTER → 2025-04-18 07:57 | Outpatient (REF) | payer MEDICARE, OTHER, SELFPAY ==
[2025-04-18 09:07] LABS: Urine Character Clear (Clear)
[2025-04-18 09:07] LABS: Hematocrit 43.2 % (37.0-47.0); Hemoglobin 14.2 g/dL (12.0-16.0); Mean Corp Hgb Conc. 32.9 g/dL (33.0-37.0); Mean Corpuscular Volume 91.5 fL (81.0-99.0); Nucleated Red Blood Cells % 0 %; Platelet Count 251 10^3/uL (130-400); Red Cell Dist. Width 12.3 % (11.5-14.5)
[2025-04-18 09:38] LABS: ALT (SGPT) 21 U/L (0-35); AST (SGOT) 23 U/L (14-36); Albumin 4.9 g/dl (3.5-5.0); Alkaline Phosphatase 106 U/L (38-126); Blood Urea Nitrogen 14 mg/dl (7-17); Calcium 8.8 mg/dl (8.4-10.2); Carbon Dioxide 24 mmol/L (22-30); Chloride 112 mmol/L (98-107); Glucose 86 mg/dl (70-99); Magnesium 2.5 mg/dl (1.6-2.3); Potassium 4.0 mmol/L (3.5-5.1); Sodium 142 mmol/L (135-145); Total Protein 7.6 g/dl (6.3-8.2); Very Low Density Lipoprotein 19 mg/dl (0-30); eGFR > 60.00
[2025-04-18 09:50] LABS: HDL Cholesterol 121 mg/dl; LDL Cholesterol, Calculated 57 mg/dl
[2025-04-18 10:07] LABS: TSH 1.16 uIU/ml (0.47-4.68)
[2025-04-18 10:25] LABS: Hepatitis C Antibody Negative (Negative)
[2025-04-18 10:31] LABS: Urine Squamous Cell >30 /LPF (Few)
[2025-04-18 10:33] LABS: Urine Red Blood Cell 0-2 /HPF (0-2)
[2025-04-18 10:42] LABS: Folate 19.3 ng/ml (2.76-20); Vitamin B12 891 pg/ml (239-931)
[2025-04-19 23:49] LABS: ANA, IgG Reflex to HEp-2 None Detected (None Detected)
== END ==
LOC: REG 07:57
PROVIDERS: ATTENDING PHYSICIAN Internal Medicine Rheumatology; FAMILY PHYSICIAN Internal Medicine Geriatric Medicine
DX: E55.9 Vitamin D deficiency, unspecified (principal); M81.0 Age-related osteoporosis without current pathological fracture; Z00.00 Encounter for general adult medical examination without abnormal findings; I10 Essential (primary) hypertension; E78.2 Mixed hyperlipidemia; E03.9 Hypothyroidism, unspecified; G47.33 Obstructive sleep apnea (adult) (pediatric); K21.9 Gastro-esophageal reflux disease without esophagitis; R56.9 Unspecified convulsions; Z13.31 Encounter for screening for depression; G62.9 Polyneuropathy, unspecified; Z79.899 Other long term (current) drug therapy; E53.1 Pyridoxine deficiency
CPT/HCPCS: 36415; 80053; 80061; 81003; 81015; 82607; 82652; 82746; 83735; 84155; 84165; 84207; 84425; 84443; 85025; 86038; 86618; 86803

== ENCOUNTER 2025-05-05 19:13 | Emergency (ER) | payer MEDICARE, OTHER, SELFPAY ==
[2025-05-05 19:18] VITALS: BP 152/95
[2025-05-05 19:36] LABS: Hematocrit 42.2 % (37.0-47.0); Hemoglobin 13.7 g/dL (12.0-16.0); Mean Corp Hgb Conc. 32.5 g/dL (33.0-37.0); Mean Corpuscular Volume 91.9 fL (81.0-99.0); Nucleated Red Blood Cells % 0 %; Platelet Count 305 10^3/uL (130-400); Red Cell Dist. Width 12.5 % (11.5-14.5)
[2025-05-05 19:46] LABS: INR 0.99; PT 13.4 Sec (11.4-14.6)
[2025-05-05 19:50] LABS: ALT (SGPT) 18 U/L (0-35); AST (SGOT) 23 U/L (14-36); Albumin 4.6 g/dl (3.5-5.0); Alkaline Phosphatase 91 U/L (38-126); Blood Urea Nitrogen 19 mg/dl (7-17); Calcium 8.8 mg/dl (8.4-10.2); Carbon Dioxide 26 mmol/L (22-30); Chloride 107 mmol/L (98-107); Glucose 103 mg/dl (70-99); Lipase 345 U/L (23-300); Potassium 3.6 mmol/L (3.5-5.1); Sodium 139 mmol/L (135-145); Total Protein 7.3 g/dl (6.3-8.2); eGFR > 60.00
[2025-05-05 20:01] LABS: Troponin I < 0.012 ng/ml
[2025-05-05] MEDS: MAALOX 50 PO (20:59)
--- NOTE | 2025-05-05 21:20 | ED.GENMED ---
History of Present Illness
General
Chief Complaint: Chest Pain
Source: patient
Exam Limitations: none
Time Seen by Provider: 05/05/25 20:26
History of Present Illness
History of Present Illness:
69-year-old female with seizure history, hyperlipidemia hypertension presents complaining of intermittent chest discomfort which she thought was indigestion over the past several days worse yesterday. There is no shortness of breath. The pain is
not pleuritic. No recent travel or surgery. The pain is in the epigastric region radiating to the chest but not to the back or arms. No fevers. No recent travel or surgery. No leg swelling or calf pain. No other complaints at this time
Past History
Past History
ED Past Medical History: Asthma, CVA, HTN, Seizures, Other (constipation) and Other (Dizziness, frequent headaches, pericarditis, urinary tract infections, kidney infections, ambulatory dysfunction, osteoporosis, asthma condition s/p pneumonia)
ED Past Surgical History: Brain (AVM surgery), Gynecological (Hysterectomy), Orthopedic (Patella fracture repair (05/06/14), left rotator cuff repair, bilateral MCL repairs) and Other (Repair of an AVM , left breast cyst removal)
Social History
Tobacco: Former smoker
Alcohol: None
Drug: None
Personal:
Living: with family
Employment: Employed
Family History
Family History: CAD
Phy Exam
Physical Exam
Physical Exam:
General: Well-appearing female no acute respiratory distress
HEENT: Normal cephalic atraumatic
Heart: Regular rate and rhythm
Lungs: Clear no wheeze
Abdomen soft tender to the epigastric region no guarding or rebound negative Sena sign nondistended
Skin warm no rash
Scores
Heart Score for Chest Pain Patients
STEMI patient?: No
History: Slightly or Non-Suspicious
ECG: Normal
Age: >/= 65 years
Risk Factors: 1 or 2 Risk Factors
Troponin: </= Normal Limit
Heart Score for Chest Pain Patients: 3
Heart Score Risk: 2.5% MACE over next 6 weeks
Course
Orders/Labs/Results
Orders:
Orders
05/05/25 19:13
EKG [Electrocardiogram (*1)] Urgent
Reason for Study: Chest Pain
EKG- Treatment ONCE
05/05/25 19:27
Complete Blood Count/With Diff Urgent
Comprehensive Metabolic Panel Urgent
Lipase Urgent
Prothrombin Time Urgent
Troponin I Urgent
05/05/25 20:46
Mag Hydrox/Al Hydrox/Simeth [Maalox] 30 ml Phenobarb/Hyoscy/Atropine/Scop [] 10 ml Viscous Lidocaine 2% [Xylocaine Viscous Cup] 10 ml PO NOW
05/05/25 20:57
Mag Hydrox/Al Hydrox/Simeth [Maalox] 30 ml .ROUTE .STK-MED ONE
Phenobarb/Hyoscy/Atropine/Scop [] 10 ml .ROUTE .STK-MED ONE
Viscous Lidocaine 2% [Xylocaine Viscous Cup] 15 ml .ROUTE .STK-MED ONE
Abnormal Lab Results
05/05/25
19:27
MCHC 32.5 L g/dL
(33.0-37.0)
BUN 19 H mg/dl
(7-17)
Glucose 103 H mg/dl
(70-99)
Lipase 345 H U/L
(23-300)
05/05/25 19:27
05/05/25 19:27
Vital Signs
Initial and Last Documented VS:
Initial Vital Signs
Temp Pulse Resp BP Pulse Ox
97.3 F 77 18 152/95 99
05/05/25 19:18 05/05/25 19:18 05/05/25 19:18 05/05/25 19:18 05/05/25 19:18
Last Documented Vital Signs
Temp Pulse Resp BP Pulse Ox
97.3 F 77 18 152/95 99
05/05/25 19:18 05/05/25 19:18 05/05/25 19:18 05/05/25 19:18 05/05/25 21:23
MDM/Problems Addressed
Differential Diagnosis Includes:
Patient with epigastric and chest discomfort. Differential could include gastritis reflux versus pancreatitis versus ACS. PE unlikely given intermittent nature and lack of pleuritic symptoms.
EKG shows sinus rhythm. Troponin is undetectable. Given days worth of symptoms 1 troponin is sufficient. Lipase marginally elevated at 345. Patient did take antacids at home and is feeling somewhat better after the antacids. Will treat with
Green grabber.
*Pulse Oximetry
SaO2: 99
Oxygen Mode of Delivery: Room air
Patient hypoxic: no
*Critical Care Note
Total Time (30-74mins, 75-104mins- exclusive of procedures): Not Applicable
Update Note
Update Note:
Patient feeling significantly better after GI cocktail. I suspect gastritis. Recommended continued use of PPIs limiting caffeine and follow-up with GI. Stable for discharge
ED Attending Note
-
Portions of this chart may have been created with voice recognition software.� Occasional wrong word or��sound alike� substitutions may have occurred due to the inherent limitations of voice recognition software.
Discharge Plan
Departure
Patient Disposition: Home (Routine Discharge)
Date of Disposition: 05/05/25
Time of Disposition: 21:37
Patient with high blood pressure during this ER visit?: No
Discharge Problem:
Chest pain
Instructions: Chest Pain That Is Not Caused by the Heart (DC), Acid Reflux and GERD in Adults (DC)
Prescriptions:
New
pantoprazole [Protonix] 40 mg tablet,delayed release (DR/EC)
40 mg PO DAILY Qty: 14 0RF
No Action
amitriptyline 25 MG tablet
25 mg PO HS
potassium chloride [Klor-Con M20] 20 MEQ tablet,ER particles/crystals
20 meq PO BID Qty: 0
cholecalciferol (vitamin D3) 2,000 UNITS tablet
4,000 units PO DAILY Qty: 0
levothyroxine 50 MCG tablet
50 mcg PO DAILY
lorazepam 1 MG tablet
0.5 mg PO HS
Patient Comments:
10/18/2022: last filled 10/14/22, 30 tabs for 30 days from [facility]
rosuvastatin 5 MG tablet
5 mg PO DAILY
topiramate 200 mg tablet
200 mg PO BID
lacosamide 100 mg tablet
150 mg PO BID
Calcium 500
600 mg PO DAILY
Mag-200
400 mg PO DAILY
Multi For Her
1 tab PO DAILY
zinc 25 mg Tablet
25 mg PO DAILY
vitamin B complex Capsule
1 cap PO DAILY
levalbuterol tartrate [Xopenex HFA] 45 mcg/actuation Hfa Aerosol Inhaler
1 puff INHALATION Q6H PRN (Reason: SOB)
budesonide-formoterol [Symbicort] 80-4.5 mcg/actuation Hfa Aerosol Inhaler
1 puff INHALATION DAILY PRN (Reason: asthma)
lorazepam 0.5 mg Tablet
0.5 mg PO DAILY PRN (Reason: seizure activity)
mupirocin 2 % Ointment
1 applic TOPICAL BID
Patient Comments:
strated treatment monday03/24/24 and completed BID
aspirin 325 mg Tablet
325 mg PO DAILY Qty: 30 0RF
Rx Instructions:
Take daily x4 weeks for blood clot prevention.
docusate sodium 100 mg Capsule
100 mg PO BID Qty: 30 0RF
dexamethasone 4 mg Tablet
4 mg PO Q12H Qty: 7 0RF
Rx Instructions:
Restart night of discharge and continue every 12 hours until finished.
Take with food.
oxycodone 5 mg Tablet
5 - 10 mg PO Q6H PRN (Reason: moderate-severe pain) Qty: 30 0RF
Rx Instructions:
1 tab for moderate pain, 2 if severe.
Dx total joint.
sennosides [Senna Laxative] 8.6 mg Tablet
17.2 mg PO BID Qty: 30 0RF
ondansetron HCl 4 mg tablet
4 mg PO Q6H PRN (Reason: nausea and vomiting) Qty: 30 0RF
Rx Instructions:
Prescribed by surgeon's office pre-op.
cefadroxil 500 mg capsule
500 mg PO BID Qty: 14 0RF
Saccharomyces boulardii [Florastor] 250 mg capsule
250 mg PO BID Qty: 14 0RF
Rx Instructions:
Over the counter. Take while on antibiotic.
If unavailable, choose a different probiotic.
amlodipine 2.5 mg Tablet
2.5 mg PO HS Qty: 0 0RF
Rx Instructions:
HOLD IF systolic blood pressure <130 while on Oxycodone.
amlodipine 5 MG tablet
5 mg PO DAILY Qty: 0 0RF
Rx Instructions:
HOLD IF systolic blood pressure <130 while on Oxycodone.
acetaminophen 500 mg Tablet
1,000 mg PO Q6H Qty: 60 0RF
Rx Instructions:
DO NOT exceed >4000 mg daily.
meloxicam 7.5 MG tablet
7.5 mg PO DAILY Qty: 0 0RF
Rx Instructions:
Home medication. Take with food.
DO NOT take within 2 hours of Aspirin.
polyethylene glycol 3350 [Miralax] 17 gram powder in packet
17 g PO DAILY PRN (Reason: Constipation) Qty: 14 0RF
Referrals:
Suly Gilbert MD [Active, Gastroenterology]
Activity Restrictions/Additional Instructions:
Avoid caffeine. Use antacid as prescribed. Return if worse otherwise follow-up with GI.
Interventions
Interventions:
*Risk Screen - Suicide Last Done: 05/05/25 19:18
*General Assessment Last Done: 05/05/25 19:18
*Neglect/Abuse Screening Last Done: 05/05/25 19:18
Discharge Date and Time
Print Language: ALBANIAN
[2025-05-05 21:47] VITALS: BP 135/80
== END 2025-05-05 22:00 | disposition home or self-care (01) ==
LOC: EMR 19:13
PROVIDERS: Emergency Medicine; EMERGENCY PHYSICIAN Emergency Medicine
DX: R07.89 Other chest pain (principal); I10 Essential (primary) hypertension; E78.00 Pure hypercholesterolemia, unspecified; J45.909 Unspecified asthma, uncomplicated; R56.9 Unspecified convulsions; Z82.49 Family history of ischemic heart disease and other diseases of the circulatory system; Z86.73 Personal history of transient ischemic attack (TIA), and cerebral infarction without residual deficits; Z87.01 Personal history of pneumonia (recurrent); Z87.440 Personal history of urinary (tract) infections; Z87.891 Personal history of nicotine dependence; Z90.710 Acquired absence of both cervix and uterus
CPT/HCPCS: 99283; 80053; 83690; 84484; 85025; 85610; 93005

== ENCOUNTER 2025-05-20 08:29 | Outpatient (RCR) | payer MEDICARE, OTHER, SELFPAY | END 2025-05-20 23:59 | disposition home or self-care (01) | LOC: RPT 08:29 | PROVIDERS: ATTENDING PHYSICIAN Nurse Practitioner Family; FAMILY PHYSICIAN Internal Medicine Geriatric Medicine | DX: H81.10 Benign paroxysmal vertigo, unspecified ear (principal); M54.2 Cervicalgia; Z73.6 Limitation of activities due to disability; M25.561 Pain in right knee; M25.562 Pain in left knee; Z96.641 Presence of right artificial hip joint | CPT/HCPCS: 97110; 97530 ==

== ENCOUNTER 2025-06-25 07:27 | Outpatient (RCR) | payer MEDICARE, OTHER, SELFPAY | END 2025-06-25 23:59 | disposition home or self-care (01) | LOC: RPT 07:27 | PROVIDERS: ATTENDING PHYSICIAN Nurse Practitioner Family; FAMILY PHYSICIAN Internal Medicine Geriatric Medicine | DX: H81.10 Benign paroxysmal vertigo, unspecified ear (principal); M54.2 Cervicalgia; Z73.6 Limitation of activities due to disability; M25.561 Pain in right knee; M25.562 Pain in left knee; Z96.641 Presence of right artificial hip joint | CPT/HCPCS: 97110; 97530 ==